=== PATIENT | female | born 1970 | race Caucasian/White ===

== ENCOUNTER 2018-11-10 11:23 | Emergency (ER) | payer MEDICAID ==
[~2018-11-10] VITALS: Ht 144.8 cm; Wt 63.0 kg
[2018-11-10 12:12] VITALS: BP 143/88
[2018-11-10] MEDS ORDERED: VITAMINS (12:12)
== END 2018-11-10 19:49 | disposition left against medical advice (07) ==
LOC: ER 11:38
DX: R10.9 Unspecified abdominal pain (principal); R51 Headache; M25.511 Pain in right shoulder; Z53.21 Procedure and treatment not carried out due to patient leaving prior to being seen by health care provider

== ENCOUNTER 2019-11-17 16:50 | Emergency (ER) | payer MEDICAID ==
[~2019-11-17] VITALS: Ht 165.1 cm; Wt 90.0 kg
[~2019-11-17 16:50] MED LIST: VITAMINS
[2019-11-17] MEDS ORDERED: KETOROLAC 30MG/ML VIAL IM ONE (19:45)
[2019-11-17 21:25] VITALS: BP 112/75
== END 2019-11-17 21:26 | disposition home or self-care (01) ==
LOC: ER 16:50
DX: S29.011A Strain of muscle and tendon of front wall of thorax, initial encounter (principal); R07.81 Pleurodynia; Z88.0 Allergy status to penicillin; Z98.890 Other specified postprocedural states; X50.1XXA Overexertion from prolonged static or awkward postures, initial encounter; Y93.89 Activity, other specified; Y92.018 Other place in single-family (private) house as the place of occurrence of the external cause
CPT/HCPCS: 71101; 96372; 99283; J1885

== ENCOUNTER 2021-12-11 12:40 | Emergency (ER) | payer MEDICAID ==
[~2021-12-11] VITALS: Ht 147.3 cm; Wt 68.0 kg
[2021-12-11 14:22] LABS: BASOPHILS % 0.3 % (0.0-2.0); EOSINOPHILS % 0.3 % (0.0-5.0); HEMATOCRIT. 35.8 % (36.0-48.0); HEMOGLOBIN. 12.3 g/dL (12.0-16.0); LYMPHOCYTES % 14.8 % (20.0-50.0); MEAN CORPUSCULAR HEMOGLOBIN 30.4 pg (28.0-32.0); MEAN CORPUSCULAR VOLUME 88.1 fL (81.0-99.0); MEAN PLATELET VOLUME 8.5 fl (7.4-10.4); MONOCYTES % 5.7 % (2.0-8.0); NEUTROPHILS % 78.9 % (40.0-76.0); PLATELET 246 x1000/uL (130-400); RED BLOOD CELL COUNT 4.06 mill/uL (4.2-5.4)
[2021-12-11 14:30] LABS: CHLORIDE 106 mEq/L (98-107)
[2021-12-11] MEDS ORDERED: ACETAMINOPHEN 325MG TABLET PO ONE (15:15)
[2021-12-11] MEDS ORDERED: KETOROLAC 30MG/ML VIAL IM ONE (15:15)
[2021-12-11 15:21] VITALS: BP 129/64
[2021-12-11 15:36] LABS: CLARITY URINE CLEAR (CLEAR); COLOR URINE YELLOW (YELLOW); KETONES URINE NEGATIVE (NEGATIVE); LEUKOCYTE ESTERASE URINE 2+ (NEGATIVE); NITRITE URINE NEGATIVE (NEGATIVE); OCCULT BLOOD URINE TRACE (NEGATIVE); PROTEIN URINE NEGATIVE (NEGATIVE); SPECIFIC GRAVITY URINE 1.016 (1.005-1.030); UROBILINOGEN URINE 0.2 E.U./dL (0.2-1.0)
[2021-12-11] MEDS ORDERED: NITR-87 MT (16:01)
== END 2021-12-11 16:16 | disposition home or self-care (01) ==
LOC: ER 12:40
DX: N39.0 Urinary tract infection, site not specified (principal); Z88.0 Allergy status to penicillin; Z98.890 Other specified postprocedural states
CPT/HCPCS: 36415; 80053; 81003; 81025; 85025; 96372; 99283; J1885